=== PATIENT | male | born 1955 | race Caucasian/White ===

== ENCOUNTER 2016-09-29 15:50 | Emergency (ER) | payer BC ==
[~2016-09-29] VITALS: Ht 175.3 cm; Wt 71.2 kg
[2016-09-29] MEDS ORDERED: PLAVIX75 MG ORAL (16:06)
[2016-09-29] MEDS ORDERED: ATORVASTATIN CA40 MG ORAL (16:06)
[2016-09-29] MEDS ORDERED: ASPIR 8181 MG ORAL (16:06)
[2016-09-29] MEDS ORDERED: TRUVADA 200 MG1 EAC1 ORAL (16:07)
[2016-09-29] MEDS ORDERED: METOPROLOL TART50 MG ORAL (16:07)
[2016-09-29] MEDS ORDERED: VALACYCLOVIR500 MG ORAL (16:07)
[2016-09-29 16:12] VITALS: BP 151/78
--- NOTE | 2016-09-29 16:42 | Emergency Room Report ---
History of Present Illness General Chief Complaint: Head Injury Source: Patient Present Illness HPI 60 YOM walk-in with now resolved episode of dizziness after dropping 8lb lamp on top of his head earlier. Denies headache, nausea/vomiting, extremity weakness. On ASA and Plavix s/p bypass. Allergies: Coded Allergies: PENICILLINS (Verified Allergy, Unknown, 09/29/16) Patient History Past Medical History: CAD Past Surgical History: none Pertinent Family History: none Social History: Denies: alcohol use, drug use, smoking Immunizations: UTD Reviewed Nursing Documentation: PMH: Agreed, PSxH: Agreed Nursing Documentation-PMH Past Medical History: No History, Except For Hx Cardiac Problems: Yes - HIV, Triple Bypass, Aortic valve replacment Hx Hypertension: No Hx Pacemaker: No Hx Asthma: No Hx COPD: No Hx Diabetes: No Hx Cancer: Yes - Skin cancer Hx Gastrointestinal Problems: No Hx Dialysis: No History Of Psychiatric Problem: No Hx Neurological Problems: No Hx Cerebrovascular Accident: No Hx Seizures: No Review of Systems All Other Systems: negative except mentioned in HPI Physical Exam Vital Signs Date Time Temp Pulse Resp B/P Pulse Ox O2 Delivery O2 Flow Rate FiO2 09/29/16 15:58 97.9 66 16 151/78 100 Room Air Sp02 EP Interpretation: reviewed, normal General Appearance: normal inspection, well appearing, no apparent distress, alert, GCS 15, non-toxic Head: normocephalic, atraumatic Eyes: bilateral eye EOMI, bilateral eye PERRL ENT: normal ENT inspection, hearing grossly normal, normal voice Neck: normal inspection, full range of motion, supple, no bony tend Respiratory: normal inspection, lungs clear, normal breath sounds, no respiratory distress, no retraction, no wheezing Cardiovascular #1: regular rate, rhythm, no edema Gastrointestinal: normal inspection, normal bowel sounds, non tender, soft, no guarding, no hernia Genitourinary: no CVA tenderness Musculoskeletal: normal inspection, back normal, normal range of motion, Joao' s Sign negative Neurologic: normal inspection, alert, oriented x3, responsive, airplane patroller III-XII nml as tested, motor strength/tone normal, speech normal Psychiatric: normal inspection, judgement/insight normal, mood/affect normal Skin: normal inspection, normal color, no rash Lymphatic: normal inspection Medical Decision Making Diagnostic Impression: Primary Impression: Acute head injury Qualified Codes: S09.90XA - Unspecified injury of head, initial encounter ER Course VSS. No focal neuro deficits. No obvious signs of trauma CT head negative for acute trauma Patient asymptomatic DC home with neuro precautions; patient lives with friend who can check on him Advised to continue ASA/Plavix F/up with PMD Last Vital Signs Date Time Temp Pulse Resp B/P Pulse Ox O2 Delivery O2 Flow Rate FiO2 09/29/16 16:12 97.9 81 16 151/78 100 Room Air Status: improved Disposition: HOME, SELF-CARE KAYA TEAGUE M.D. Sep 29, 2016 16:42
[2016-09-29 17:20] VITALS: BP 142/82
--- NOTE | 2016-09-30 10:45 | Diagnostic Imaging Report ---
Indications: Head injury, pain Technique: Continuous helical CT imaging of the brain was performed with automatic exposure control on a Siemens sensation [address] scanner. Axial and coronal images were reconstructed at 5 mm slice thickness and interval. CTDI volume(s): 70 mGy Total DLP: 1375 mGy-cm Findings: Comparison: None. Ventricles, cisterns, sulci are diffusely prominent.. No evidence of mass or hemorrhage, other attenuation abnormality, mass effect, midline shift, hydrocephalus or increased intracranial pressure. Bone window images demonstrate focal defect in the medial wall of each maxillary sinus, are otherwise unremarkable. Visualized paranasal sinuses and mastoid air cells are clear. IMPRESSION: No evidence of acute injury or other acute intracranial pathology Atrophy, chronic for age. Previous bilateral nasoantral window creation Written preliminary report placed in PACS to 09/29/[address] scanner at [facility] is accredited by the [employer] and the scans are performed using protocols designed to limit radiation exposure to as low as reasonably achievable to attain images of sufficient resolution adequate for diagnostic evaluation.
== END 2016-09-29 17:21 | disposition home or self-care (01) ==
LOC: EMR 16:39
DX: S09.90XA Unspecified injury of head, initial encounter (principal); W22.8XXA Striking against or struck by other objects, initial encounter; Y93.9 Activity, unspecified; Y92.9 Unspecified place or not applicable; Z79.82 Long term (current) use of aspirin; Z79.02 Long term (current) use of antithrombotics/antiplatelets; Z88.0 Allergy status to penicillin; Z85.828 Personal history of other malignant neoplasm of skin; I25.10 Atherosclerotic heart disease of native coronary artery without angina pectoris
CPT/HCPCS: 70450; 99284